=== PATIENT | male | born 1980 | race Caucasian/White ===

== ENCOUNTER → 2019-06-03 | Outpatient (CLI) | payer OTHER ==
[~2019-06-03] MED LIST: 0.9 % SODIUM CHLORIDE 10 ML DISP.SYRIN. ID ONE; GADOTERATE 5 MMOL/10ML VIAL. INT ART ONE; IOHEXOL 300 MG/ML 50 ML VIAL. INT ART ONE; LEVO25TA55 PO; LIDOCAINE 1% Multi-Dose 20 ML VIAL. ID ONE
--- NOTE | 2019-06-03 13:43 | KCIC ---
PRE-MRI LEFT KNEE ARTHROGRAM USING FLUOROSCOPIC GUIDANCE Clinical indications: Chronic lateral left knee pain with popping and tightness. Procedure: The procedure and possible complications including bleeding and infection were explained. The patient provided both verbal and written consent. A timeout was performed confirming the name of the patient and date of and the procedure and side of the procedure. The anterior lateral aspect of the left knee was prepped and draped in the usual sterile fashion with ChloraPrep. A total of 3 cc of 1% lidocaine was utilized for local anesthesia. Using sterile technique and fluoroscopic guidance, a 22-gauge spinal needle was directed into the lateral tibiofemoral joint compartment from an anterior approach. A solution containing 10 cc of sterile normal saline and 5 cc of 1% lidocaine and 5 cc of Omnipaque 300 and 0.1 cc of Dotarem was injected intra-articularly under fluoroscopic observation and fluoroscopic spot views of the left knee were performed which confirmed intra-articular position of the contrast. The needle was removed and hemostasis was adequate. A sterile bandage was applied to the puncture site. The patient tolerated the procedure well without complication and was sent to the MRI suite for further imaging. Total fluoroscopic time: 61 seconds. 2 fluoroscopic spot images were performed. Impression: Fluoroscopic guided left knee injection was performed prior to an MRI study. Electronically signed by: Shiraz Call MD (06/03/2019 1:39 PM) [email or web address]
--- NOTE | 2019-06-03 13:56 | KCIC ---
MRI LEFT KNEE ARTHROGRAM Clinical indications: Chronic lateral left knee pain with popping and tightness. No previous surgery. TECHNIQUE: After intra-articular injection of gadolinium, post arthrogram MRI sequences of the left knee were performed in all 3 planes. The intra-articular injection of gadolinium was dictated as a separate procedure. COMPARISON: None available. FINDINGS: The anterior and posterior cruciate ligaments are intact. The quadriceps and patellar tendons are intact. No articular surface tear of the medial or lateral meniscus is seen. The medial collateral ligament is intact and no meniscocapsular separation is seen. The iliotibial band and lateral collateral ligament complex and popliteus tendon are intact. No posterior lateral corner injury is seen. No bone contusion or fracture or marrow infiltrative process is seen. No articular cartilage defect or significant osteochondral abnormality of the medial tibiofemoral joint compartment is seen. There is focal moderate chondromalacia of the articular cartilage of the lateral tibial plateau. Cartilaginous defect and irregularity is seen best noted on series 8 and image 12 and series 5 and image 8. No significant articular cartilage abnormality of the lateral femoral condyle is seen. No significant degenerative spurring of the medial or lateral tibial femoral joint compartments is seen. The patella is normally aligned. No articular cartilage defect of the patella is seen. There is focal moderate chondromalacia of the central trochlear groove articular cartilage. The medial and lateral retinacular ligaments are intact. Small medial plica shelf is seen. No Hong's cyst is seen. No loose body is evident. No muscle edema is seen. IMPRESSION: No meniscal or ligament or tendon tear. 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 Electronically signed by: Shiraz Call MD (06/03/2019 1:53 PM) [id number]
== END ==
LOC: KCIC 10:35
PROVIDERS: ATTEND Family Medicine
DX: M25.562 Pain in left knee (principal)
CPT/HCPCS: 27369; 73722; 77002; A9575; Q9967; 27370